=== PATIENT | female | born 1975 | race African-American/Black ===

== ENCOUNTER 2017-07-14 05:39 | Day surgery (SDC) | payer OTHER ==
[2017-07-08 10:59] LABS: APPEARANCE,URINE CLEAR; BILIRUBIN,URINE NEGATIVE (NEGATIVE); GLUCOSE, URINE NEGATIVE (NEGATIVE); KETONES,URINE NEGATIVE (NEGATIVE); LEUKOCYTE ESTERASE,URINE TRACE (NEGATIVE); NITRITE,URINE NEGATIVE (NEGATIVE); PROTEIN,URINE NEGATIVE (NEGATIVE); URINE SPECIFIC GRAVITY 1.012; UROBILINOGEN,URINE NEGATIVE mg/dL (<2.0)
[2017-07-08 11:04] LABS: HEMATOCRIT 31.8 % (36.0-47.0); HEMOGLOBIN 10.2 g/dL (12.0-15.5); HGB HCT DIFFERENCE -1.2; MEAN CORPUSCULAR HEMOGLOBIN 21.8 pg (27.0-33.4); MEAN CORPUSCULAR HGB CONC 31.9 g/dL (32.0-36.0); MEAN CORPUSCULAR VOLUME 68 fl (80-97); RED BLOOD COUNT 4.67 10^6/uL (3.72-5.28); RED CELL DISTRIBUTION WIDTH 16.7 % (11.5-14.0); WHITE BLOOD COUNT 12.7 10^3/uL (4.0-10.5)
[2017-07-08 11:27] LABS: ALANINE AMINOTRANSFERASE 23 U/L (9-52); ALBUMIN 4.7 g/dL (3.5-5.0); ALKALINE PHOSPHATASE 97 U/L (38-126); ANION GAP 16 (5-19); ASPARTATE AMINO TRANSFERASE 21 U/L (14-36); BILIRUBIN,DIRECT 0.4 mg/dL (0.0-0.4); BILIRUBIN,TOTAL 0.5 mg/dL (0.2-1.3); BLOOD UREA NITROGEN 7 mg/dL (7-20); CALCIUM 10.4 mg/dL (8.4-10.2); CARBON DIOXIDE 23 mmol/L (22-30); CHLORIDE 105 mmol/L (98-107); GLUCOSE 93 mg/dL (75-110); TOTAL PROTEIN 8.5 g/dL (6.3-8.2)
[~2017-07-14 05:39] MED LIST: CEFAZOLIN 2 GM/D5W RTU 2 GM/50 ML RTUPB IV PRN; GABAPENTIN 400 MG CAPSULE PO PRN; LACTATED RINGERS 1000 ML IV PRN; LIDOCAINE 0.5% INJ-PF (5 MG/ML) 50 ML SDV SUBCUT PRN
[2017-07-14] MEDS ORDERED: FENTANYL CITRATE INJ/PF 250 MCG/5 ML AMPULE ONE (06:55)
[2017-07-14] MEDS ORDERED: FENTANYL CITRATE INJ/PF 100 MCG/2 ML AMPUL ONE ×2 (06:56→11:51)
[2017-07-14] MEDS ORDERED: MIDAZOLAM 2 MG/2 ML INJ ONE (06:57)
[2017-07-14] MEDS ORDERED: EPHEDRINE SULFATE INJ 50 MG/1 ML AMPULE ONE (06:57)
[2017-07-14] MEDS ORDERED: PROPOFOL INJ 200 MG/20 ML VIAL IV ONE (06:58)
[2017-07-14] MEDS ORDERED: MORPHINE SULFATE 10 MG/ML INJ ONE (06:58)
[2017-07-14] MEDS ORDERED: ACETAMINOPHEN 100 ML IV ONE (06:58)
[2017-07-14] MEDS ORDERED: BUPIVACAINE HCL 0.25 % INJ/PF (2.5 MG/1 ML) 30 ML VIAL ONE (07:02)
[2017-07-14] MEDS ORDERED: VASOPRESSIN INJ 20 UNIT/1 ML VIAL ONE (09:14)
[2017-07-14] MEDS ORDERED: PROMETHAZINE HCL INJ 25 MG/1 ML VIAL IV PRN (09:47)
[2017-07-14] MEDS ORDERED: MORPHINE SULFATE 10 MG/ML INJ IV PRN (09:47)
[2017-07-14] MEDS ORDERED: MEPERIDINE HCL/PF INJ 25 MG/1 ML DISP.SYRIN IV PRN (09:47)
[2017-07-14] MEDS ORDERED: DIPHENHYDRAMINE HCL 50 MG/ML VIAL IV PRN (09:47)
[2017-07-14] MEDS ORDERED: FENTANYL CITRATE INJ/PF 100 MCG/2 ML AMPUL IV PRN ×3 (09:47)
--- NOTE | 2017-07-14 11:20 | PDOC DISCHARGE SUMMARY ---
Discharge Summary (SDC) - Discharge Final Diagnosis: Menorrhagia Fibroid uterus Date of Surgery: 07/14/17 Discharge Date: 07/14/17 Condition: Good Forms: Post Operative Treatment or Instructions: Robotic assisted myomectomy, hysterectomy, bilateral salpingectomy Cystoscopy Prescriptions: Ibuprofen 800 mg PO TID PRN #60 tablet PRN Reason: Pain Scale Of 3 Oxycodone HCl/Acetaminophen [Percocet 5-325 mg Tablet] 2 tab PO ASDIR PRN #30 tab PRN Reason: Pain Scale Of 3 Discharge Diet: As Tolerated Respiratory Treatments at Home: Deep Breathing/Coughing Discharge Activity: Activity As Tolerated, Balance Activity w/Rest, No Lifting/ Push/Pulling - over 25lbs, Pelvic Rest, No tub bath - you may shower Home Care Assistance: None Needed Report the Following to Your Physician Immediately: Vomiting, Increase in Pain, Fever over 101 Degrees, Unusual Bleeding, Drainage-Yellow, Drainage-Foul Smelling, Increased Vaginal Bleed
[2017-07-14] MEDS ORDERED: OXYCODONE-ACETAMINOPHEN 5-325 MG TABLET PO PRN (11:34)
[2017-07-14] MEDS ORDERED: ONDANSETRON HCL INJ/PF 4 MG/2 ML SDV IV PRN (11:35)
[2017-07-14] MEDS ORDERED: SUCCINYLCHOLINE CHLORIDE INJ 200 MG/10 ML VIAL ONE (13:09)
[2017-07-14] MEDS ORDERED: VECURONIUM BROMIDE INJ 10 MG VIAL IV ONE (13:09)
[2017-07-14] MEDS ORDERED: GLYCOPYRROLATE INJ 0.4 MG/2 ML VIAL ONE (13:09)
[2017-07-14] MEDS ORDERED: NEOSTIGMINE METHYLSULFATE 10 MG/10 ML VIAL ONE (13:09)
[2017-07-14] MEDS ORDERED: DEXAMETHASONE SOD PHOSPHATE INJ 4 MG/1 ML VIAL ONE (13:09)
[2017-07-14] MEDS ORDERED: PHENYLEPHRINE HCL INJ/PF 10 MG/1 ML SDV ONE (13:09)
[2017-07-14] MEDS ORDERED: ONDANSETRON HCL INJ/PF 4 MG/2 ML SDV ONE (13:09)
[2017-07-14] MEDS ORDERED: LIDOCAINE 2% INJ-PF (20 MG/ML) 10 ML AMPUL ONE (13:09)
[2017-07-15 08:07] VITALS: BP 117/72
--- NOTE | 2017-07-15 16:48 | OPERATIVE REPORT E ---
Operative Report NAME: OFELIA WALLER : 1975 AGE: 42Y DATE OF SURGERY: 07/14/2017 ROOM: 210 PREOPERATIVE DIAGNOSES: 1. Fibroid uterus and abnormal uterine bleeding. 2. Menorrhagia. POSTOPERATIVE DIAGNOSES: 1. Fibroid uterus and abnormal uterine bleeding. 2. Menorrhagia. PROCEDURES: Robotic-assisted total laparoscopic myomectomy, hysterectomy, bilateral salpingectomy, and cystoscopy. SURGEON: VANITA SPICER M.D. DENIAL RESOLUTION SPECIALIST: BUTCH SHAH M.D. ANESTHESIA: General. COMPLICATIONS: None. ESTIMATED BLOOD LOSS: 250 mL. URINE OUTPUT: Clear at the end of the procedure. SPECIMENS: Fibroid uterus with cervix, bilateral fallopian tubes. FINDINGS: The uterus was enlarged to approximately 18-week size with a very large fibroid noted in the lower anterior uterine segment, which was making visualization of the bladder flap difficult as well as prohibiting vaginal removal of the uterus with the fibroid intact. INDICATIONS: This is a 42-year-old female G3, P3-0-0-3, with a fibroid uterus and heavy uterine bleeding refractory to medical management. After discussing the risks, benefits, and alternatives including, but not limited to, observation, medical management, uterine artery embolization, endometrial ablation, operative hysteroscopy, open abdominal hysterectomy, and total vaginal hysterectomy were all discussed with the patient and she elected for the above procedure. DESCRIPTION OF THE PROCEDURE: After the patient was properly consented, she was taken to the operating room where general anesthesia was then introduced with endotracheal intubation. The patient was transferred to a dorsal lithotomy position using adjustable Hari stirrups and prepped and draped in the usual sterile fashion. We began the placement of a VCare large uterine manipulator in the typical fashion as well as a Perrin catheter in the bladder. Gloves were changed and I proceeded above where 0.25% plain Marcaine local anesthetic was placed supraumbilically approximately 2 cm above the umbilicus. A 12 mm skin incision was made with the scalpel followed by a Veress needle introduction into the peritoneal cavity with correct placement ascertained by a drop in CO2 pressure to 3 mmHg. Pneumoperitoneum was established to a pressure of 15 mmHg. The Veress needle was removed. A 12 mm bladeless trocar was advanced into the pneumoperitoneum immediate visualization with the camera demonstrated an atraumatic entry and the above findings. We subsequently placed 2 right and 1 left lateral 8 mm ports following the typical routine of local anesthetic, followed by a skin incision, followed by the placement of the port under direct visualization. With all ports in place, the patient was put in steep Trendelenburg position and the robot was then docked and I scrubbed out and proceeded to the robotic console. The pelvic anatomy was inspected and the findings noted above. The ureters were identified by peristalsis in their usual course at the pelvic brim bilaterally. Dissection was begun on the right side using the fenestrated bipolar graspers and the vessel sealer. The round ligament on the right was cauterized and transected. Next, the broad ligament was opened and dissected inferiorly to the upper portion of the future bladder flap. Next, the fallopian tube was dissected from the tubo-ovarian ligament and the ovary from the uterus by transected the utero-ovarian ligament. This dissection was continued along the lateral portion of the uterine body to connect with the previous transected round ligament. This dissection was repeated on the left-hand side as well. At this point, attention was turned to the lower uterine segment anterior fibroid. The fibroid was incised with bipolar cautery and an incision through the myometrium overlying the large fibroid was completed with the vessel sealer. Using the real estate legal assistant laparoscopic port, a single-tooth tenaculum was introduced and used to grasp the fibroid. Wide dissection of the fibroid was completed with the bipolar graspers and vessel sealer. Once the fibroid was free of uterus, it was placed in the right upper abdomen near the gallbladder. At this point, the remainder of the hysterectomy was completed by again returning to the right side and being very careful to hug the uterus, the lower uterine segment dissection was continued along the side of the cervix to the top of the coring. The same dissection was repeated on the left side. The areas of dissection were noted to be hemostatic. The edges of the VCare cervical cap was identified and the vessel sealer was switched out for monopolar scissors. At this time, the monopolar scissors and bipolar graspers were used to incise the peritoneum reflection of the bladder onto the uterus. This was elevated and reduced creating the bladder flap. Then, the colpotomy was initiated with monopolar cautery and carried around circumferentially until the specimen was free and pulled through the vagina. Next, the large fibroid was grasped with a single-tooth tenaculum through the real estate legal assistant port and also passed out of the pelvis through the colpotomy. Once both the specimens were removed, the vaginal cuff was closed with running V-Loc suture of 3-0 Monocryl incorporating the uterosacral pedicles for support. The pelvis was irrigated copiously. Hemostasis was noted. FloSeal hemostatic agent was applied to the cuff end area of dissection of the broad ligament. The abdomen was deflated and the robot was undocked and all instruments were removed, but the ports were left in place. The patient was taken out of Trendelenburg and attention was turned to below where a cystoscopy was completed in the typical fashion. The bladder was noted to be intact with no visible suture or injury and bilateral ureteral orifices were noted to have a forceful ureteral jet. The bladder was then drained and cystoscopy was completed. Gloves were changed and attention was turned back to the abdomen where 12 mm port site fascia was closed after removal of all the ports. This fascia was closed with 0-Vicryl suture and the skin of the 8 and 12 mm ports were closed with 4-0 Monocryl in a subcuticular fashion and a Dermabond dressing was applied. Anesthesia was reversed. Sponge, lap, and needle counts were correct at the end of the procedure, and the patient was taken to the PACU in a stable condition. DICTATING PHYSICIAN: VANITA SPICER M.D. [id number] PHY#: [id number] ID: [id number] JOB#: [id number] ACCT: [id number] cc:VANITA SPICER M.D. >
== END 2017-07-15 10:13 | disposition home or self-care (01) ==
LOC: OROUT 05:39 → 2N 12:44 → OROUT 07-15 10:13
PROVIDERS: ATTEND Obstetrics & Gynecology
PROC: 0UTC4ZZ Resection of Cervix, Percutaneous Endoscopic Approach (ICD-10-PCS; 2017-07-14)
PROC: 0UT74ZZ Resection of Bilateral Fallopian Tubes, Percutaneous Endoscopic Approach (ICD-10-PCS; 2017-07-14)
PROC: 8E0W4CZ Robotic Assisted Procedure of Trunk Region, Percutaneous Endoscopic Approach (ICD-10-PCS; 2017-07-14)
PROC: 0UT94ZZ Resection of Uterus, Percutaneous Endoscopic Approach (ICD-10-PCS; principal; 2017-07-14 07:30)
DX: N92.0 Excessive and frequent menstruation with regular cycle (principal); D25.9 Leiomyoma of uterus, unspecified; N83.8 Other noninflammatory disorders of ovary, fallopian tube and broad ligament; D64.9 Anemia, unspecified; Z79.82 Long term (current) use of aspirin; Z79.899 Other long term (current) drug therapy; Z88.6 Allergy status to analgesic agent
CPT/HCPCS: 58573; S2900; 36415; 80053; 81001; 81025; 840; 85027; 86850; 86900; 86901; 88307; J0131; J0330; J0690; J1100; J2250; J2270; J2370; J2405; J2704; J3010; J3490